=== PATIENT | female | born 1960 | race Caucasian/White ===

== ENCOUNTER 2025-01-22 10:19 | Emergency (ER) | payer OTHER ==
[2025-01-22] MEDS ORDERED: HYDROcodone/Acetaminophen 10/325 mg Tablet ONE (10:42)
== END 2025-01-22 11:16 | disposition home or self-care (01) ==
LOC: MADERS 10:19
DX: S29.9XXA Unspecified injury of thorax, initial encounter (principal); X58.XXXA Exposure to other specified factors, initial encounter
CPT/HCPCS: 99283